=== PATIENT | male | born 1930 | race Caucasian/White ===

== ENCOUNTER 2018-09-09 10:36 | Inpatient (IN) | payer MEDICARE ==
[~2018-09-09] VITALS: Ht 175.3 cm; Wt 79.1 kg
[2018-09-09] VITALS (9 sets, daily range): BP systolic 108–139; BP diastolic 42–75; PULSE 52–72; TEMP 98.1–98.6
[2018-09-09] MEDS ORDERED: PENTASA500 MG PO (12:38)
[2018-09-09] MEDS ORDERED: BENTYL 10MG10 MG/CAP PO (12:41)
[2018-09-09] MEDS ORDERED: PROTONIX 40MG T40 MG PO (12:41)
[2018-09-09] MEDS ORDERED: STOOL SOFTENER100 M2 PO (12:42)
[2018-09-09] MEDS ORDERED: IMODIUM 2MG CAPS2 MG PO (12:42)
[2018-09-09] MEDS ORDERED: TRENTAL 400MG400 MG PO (12:43)
[2018-09-09] MEDS ORDERED: PLAVIX 75MG TAB75 MG PO (12:45)
[2018-09-09] MEDS ORDERED: PERSANTINE75 MG PO (12:46)
[2018-09-09] MEDS ORDERED: COUMADIN 1MG1 MG/TAB PO (12:47)
[2018-09-09] MEDS ORDERED: LOVENOX 3030 MG/0.3 SQ (12:48)
[2018-09-09] MEDS ORDERED: NORVASC 10MG10 MG PO (12:49)
[2018-09-09] MEDS ORDERED: PRINIVIL10 MG PO (12:49)
[2018-09-09] MEDS ORDERED: RAPAFLO8 MG PO (12:50)
[2018-09-09] MEDS ORDERED: NEURONTIN300 MG/CAP PO (12:51)
[2018-09-09] MEDS ORDERED: RT SPIRIVA18 MCG IH (12:52)
[2018-09-09] MEDS ORDERED: ZOFRAN ODT4 MG PO (12:53)
[2018-09-09] MEDS ORDERED: ANTIVERT 12.512.5 MG PO (12:54)
[2018-09-09] MEDS ORDERED: ALBUTEROL0.83 MG/ML IH (12:56)
[2018-09-09] MEDS ORDERED: NAFTIN TP (12:57)
[2018-09-09] MEDS ORDERED: CLOBEX 118 ML118 M1 TP (12:58)
[2018-09-09] MEDS ORDERED: DESOWEN0.05% TP (12:59)
[2018-09-09] MEDS ORDERED: NORCO 325 MG-51 TAB PO (13:07)
[2018-09-09] MEDS ORDERED: MUCINEX 60600 MG/TA1 PO (13:08)
[2018-09-09] MEDS ORDERED: TYLENOL 325MG325 MG PO (13:08)
[2018-09-09] MEDS ORDERED: ALKA-SELTZER HE1 TEF PO (13:09)
[2018-09-09] MEDS ORDERED: VITAMIN B11000 MCG/M IM (13:10)
[2018-09-09] MEDS ORDERED: MULTIPLE VITAMI1 CAP PO (13:10)
[2018-09-09] MEDS ORDERED: LUTEIN20 M1 PO (13:11)
[2018-09-09] MEDS ORDERED: OMEGA-3 1000 MG1 CAP PO (13:11)
[2018-09-09] MEDS ORDERED: FERROUS GLUCON240 MG PO (13:13)
[2018-09-09] MEDS ORDERED: MAGNESIUM200 MG PO (13:13)
[2018-09-09] MEDS ORDERED: LOVENOX 8080 MG/0.8 SQ (13:16)
[2018-09-09] MEDS ORDERED: MUCINEX1200 MG PO (13:18)
[2018-09-10 00:05] VITALS: BP 120/55; PULSE 83; TEMP 98.6
[2018-09-10 06:17] VITALS: BP 139/89; PULSE 85; TEMP 98.8
[2018-09-10 08:00] VITALS: BP 112/58; PULSE 72; TEMP 98
[2018-09-10 08:43] LABS: INR 1.1 (0.8-3.0); PROTHROMBIN TIME 12.8 SECONDS (9.7-12.8)
[2018-09-10 11:52] VITALS: BP 156/52; PULSE 78; TEMP 98.1
[2018-09-10 16:58] VITALS: BP 148/65; PULSE 71; TEMP 98
[2018-09-10 20:25] VITALS: BP 146/50; PULSE 71; TEMP 98.2
[2018-09-11 03:28] VITALS: BP 133/52; PULSE 72; TEMP 98.2
[2018-09-11 07:06] LABS: INR 1.4 (0.8-3.0); PROTHROMBIN TIME 15.8 SECONDS (9.7-12.8)
[2018-09-11 07:44] VITALS: BP 125/56; PULSE 64; TEMP 98
[2018-09-11 11:43] VITALS: BP 105/48; PULSE 66; TEMP 97.8
[2018-09-11 16:19] VITALS: BP 119/48; PULSE 77; TEMP 98.1
[2018-09-11 19:22] VITALS: BP 116/43; PULSE 70; TEMP 97.6
[2018-09-12 03:24] VITALS: BP 118/45; PULSE 70; TEMP 98.2
[2018-09-12 06:25] LABS: INR 1.7 (0.8-3.0)
[2018-09-12 08:45] VITALS: BP 117/48; PULSE 65; TEMP 96.9
[2018-09-12] MEDS ORDERED: PHENERGAN 25 TA25 MG PO (09:44)
[2018-09-12] MEDS ORDERED: BENTYL 10MG10 MG/CAP PO (09:45)
[2018-09-12] MEDS ORDERED: NORCO 325 MG-7.1 TAB PO (09:50)
[2018-09-12] MEDS ORDERED: SENOKOT S 50 MG1 TAB PO (09:52)
[2018-09-12] MEDS ORDERED: GOOD SENSE400 MG/5 M PO (09:52)
[2018-09-12] MEDS ORDERED: COUMADIN 6MG6 MG/TAB PO (09:55)
[2018-09-12] MEDS ORDERED: ULTRAM 50MG TAB50 MG PO (09:56)
[2018-09-12 12:30] VITALS: BP 113/42; PULSE 72; TEMP 98.6
== END 2018-09-12 15:45 | DRG 241 ==
LOC: SDCO 10:36 → JCC 16:45 → SDCO 09-11 16:45 → JCC 09-11 23:59
PROVIDERS: Orthopaedic Surgery
PROC: 0Y6M0Z0 Detachment at Right Foot, Complete, Open Approach (ICD-10-PCS; principal; 2018-09-09 13:00)
DX: I70.261 Atherosclerosis of native arteries of extremities with gangrene, right leg (principal); Z89.512 Acquired absence of left leg below knee; Z88.1 Allergy status to other antibiotic agents; Z88.8 Allergy status to other drugs, medicaments and biological substances; J44.9 Chronic obstructive pulmonary disease, unspecified; Z86.711 Personal history of pulmonary embolism
CPT/HCPCS: OP; A9284; G8978-GP; G8979-GP; G8987-GO; G8988-GO; J1650; J2250; J2270; J2704; J2795; J3010; J7042; J7120